=== PATIENT | female | born 1950 | race Caucasian/White ===

== ENCOUNTER 2021-10-20 10:48 | Emergency (ER) | payer MEDICARE, OTHER, SELFPAY ==
[2021-10-20] VITALS (11 sets, daily range): BP systolic 207–243; BP diastolic 99–119; PULSE 86–116; RESP 20; TEMP 36.9; O2SAT 96–99; BMI 25.7
--- NOTE | 2021-10-20 11:21 | DI.CT.S_ITS ---
PROCEDURE: CT SOFT TISSUE NECK W CON INDICATIONS: swelling of glands more on right than left TECHNIQUE: Helical axial CT of the neck was obtained after intravenous contrast injection and reformatted in multiple planes. Radiation dose reduction was achieved utilizing automated exposure control and/or parameter adjustment according to patient's size. COMPARISON: None. FINDINGS: Skull Base: The visualized intracranial contents, skull, and orbits are unremarkable. Bilateral maxillary retention cysts present greater on the left. 1.4 cm left maxillary retention cyst. Incidental deviation of the nasal septum to the left Pharynx and Larynx: The nasopharyngeal airway is patent and midline. Parapharyngeal soft tissues including palatine tonsils and base of the tongue are normal. Retropharyngeal space unremarkable. Normal appearance of the false and true vocal cords. Muscles and Fascial Planes: Fascial planes are well maintained. No abscess or mass lesion. Lymph Nodes: Bilateral level 1B submandibular adenopathy. On the left, there is a 1.8 x 2.1 cm lymph node, and on the right, there is a 2.0 x 1.3 cm node with low-density core and surrounding inflammatory edema present. Vasculature: Unremarkable. Submandibular and Parotid Glands: Normal in size and attenuation. Thyroid: Left 1.7 cm thyroid nodule Bones: No acute fracture. No osteolytic or blastic lesion is evident. Normal bone mineralization. Lung Apices: The visualized lung apices are clear. IMPRESSION: 1. Bilateral submandibular adenopathy. Low-density core and surrounding inflammatory change on the right consistent with suppurative lymphadenitis. Approved by: August Morel M.D. on 10/20/2021 at 12:02
--- NOTE | 2021-10-20 11:21 | ED.URI ---
HPI - URI/Sore Throat General Chief Complaint: Neck Pain/Injury Stated Complaint: Swollen/hard lymphnode on right side of neck Time Seen by Provider: 10/20/21 10:53 History of Present Illness HPI Narrative: Patient is a 71-year-old female who does not go to doctors presenting with neck swelling. She says it started about 2 or 3 days ago got worse yesterday and even worse today. They travel to [place] she said on the plane she felt like it was getting worse. She is still able to swallow she does not feel any difficulty breathing she is managing her own secretions. She has not had any fever or chills. She has significantly more swelling on the right than the left. Patient says she is also worried about monkey pox Related Data Previous Rx's Medication Instructions Recorded amoxicillin 875 mg-potassium 1 tab PO BID #14 tab 10/20/21 clavulanate 125 mg tablet Allergies Allergy/AdvReac Type Severity Reaction Status Date / Time No Known Drug Allergies Allergy Verified 10/20/21 11:48 Review of Systems Review of Systems Narrative: GENERAL: Denies chills, fatigue, malaise, fever, sweats, travel HEENT: See HPI RESPIRATORY: Denies dyspnea, cough, wheezing, hemoptysis, sputum. CARDIOVASCULAR: Denies chest pain, palpitations, orthopnea, edema GASTROINTESTINAL: Denies nausea, vomiting, abdominal pain, diarrhea, constipation, melena. : Denies dysuria, frequency, incontinence, hematuria, urinary retention, flank pain. MUSCULOSKELETAL: Denies weakness, joint pain, or bony pain SKIN: No rash, no erythema, no pruritus NEUROLOGIC: Denies weakness, dizziness, headache, numbness, change in speech, confusion PSYCHIATRIC: No concerning psychosocial issues. 12 point review of systems is negative except for those stated above and HPI Exam Initial Vital Signs Initial Vital Signs: Vital Signs Temperature 98.4 F 10/20/21 11:10 Pulse Rate 116 H 10/20/21 11:10 Respiratory Rate 20 10/20/21 11:10 Blood Pressure 243/119 H 10/20/21 11:10 Pulse Oximetry 99 10/20/21 11:10 GENERAL: Alert anxious 71-year-old female HEENT: Head atraumatic,EOMI, pupils reactive, face symmetric, moist mucous membranes NECK: Submandibular lymph adenopathy and is swelling noted more on right than left. No airway compromise. no Erythema. CARDIOVASCULAR: Regular rate and rhythm without murmurs, rubs or gallops. No stridor, managing secretions RESPIRATORY: Breath sounds equal bilaterally, no wheezes rales or rhonchi. ABDOMEN: Soft, nontender. Normoactive bowel sounds all 4 quadrants. No guarding or rebound. EXTREMITIES: Normal range of motion, no clubbing or edema. Neurovascularly intact NEUROLOGICAL: Alert and oriented x4.Normal gait and speech. SKIN: Warm, dry, no laceration, no petechiae, no rashes or lesions. Skin appears normal. Course Orders Ordered: ED Orders 10/20/21 11:21 CT soft tissue neck w con Stat 10/20/21 11:40 CBC Auto Diff [Complete Blood Count AUTO DIFF] Stat CMP [Comprehensive Metabolic Panel] Stat Procalcitonin Stat Discontinued Medications Ketorolac Tromethamine (Ketorolac 30 Mg/Ml Vial) 15 mg IV NOW ONE Stop: 10/20/21 13:20 Last Admin: 10/20/21 13:34 Dose: 15 mg Documented by: ERICK Vital Signs Vital signs: Vital Signs - 8 hr 10/20/21 11:10 10/20/21 11:35 10/20/21 11:36 Temperature 98.4 F Pulse Rate 116 H 101 H 104 H Respiratory Rate 20 Blood Pressure 243/119 H 236/112 H Pulse Oximetry 99 97 97 10/20/21 12:00 10/20/21 12:19 10/20/21 12:22 Temperature Pulse Rate 98 H 96 H 94 H Respiratory Rate 20 20 Blood Pressure 223/107 H 234/100 H Pulse Oximetry 97 98 98 10/20/21 12:30 10/20/21 13:00 10/20/21 13:06 Temperature Pulse Rate 86 88 94 H Respiratory Rate Blood Pressure 222/104 H 207/99 H 211/103 H Pulse Oximetry 98 96 97 10/20/21 13:18 10/20/21 13:38 Temperature Pulse Rate 95 H Respiratory Rate Blood Pressure 218/106 H Pulse Oximetry 98 MDM - URI/Sore Throat Lab Data Result diagrams: 10/20/21 11:40 10/20/21 11:40 Labs: Lab Results 10/20/21 10/20/21 10/20/21 Range/Units 11:40 11:40 11:40 WBC 14.4 H (4.5-11.0) X10^3/uL RBC 4.66 (4.0-5.2) X10^6/uL Hgb 13.9 (12.0-16.0) g/dL Hct 40.8 (36-46) % MCV 87.4 (80-100) fL MCH 29.8 (26-34) PG MCHC 34.1 (30-36) % RDW 14.7 (11.6-14.8) % Plt Count 221 (150-400) X10^3/uL Neut % (Auto) 84.7 H (50-75) % Lymph % (Auto) 7.8 L (25-40) % [place] % (Auto) 5.9 (3-14) % Eos % (Auto) 1.2 L (2-4) % Baso % (Auto) 0.4 (0-2) % Neut # (Auto) 75000 H (0954-7886) /uL Lymph # (Auto) 1100 (3107-8530) /uL [place] # (Auto) 900 (0-900) /uL Eos # (Auto) 200 (0-450) /uL Baso # (Auto) 100 (0-100) /uL Sodium 139 (137-145) mmol/L Potassium 4.0 (3.4-5.1) mmol/L Chloride 108 H (98-107) mmol/L Carbon Dioxide 26 (22-32) mmol/L BUN 24 H (7-17) mg/dL Creatinine 0.93 (0.52-1.04) mg/dL Estimated GFR > 60 (>60) mL/min BUN/Creatinine Ratio 25.8 H (6-22) Glucose 111 H (80-110) mg/dL Calcium 8.8 (8.4-10.2) mg/dL Total Bilirubin 0.9 (0.2-1.3) mg/dL AST 26 (14-36) IU/L ALT 18 (<35) IU/L Alkaline Phosphatase 71 (38-126) U/L Total Protein 7.8 (6.3-8.2) g/dL Albumin 4.6 (3.5-5.0) g/dL Globulin 3.2 (1.7-4.1) g/dL Albumin/Globulin Ratio 1.4 (1.0-2.8) Procalcitonin 0.07 (<0.5) ng/mL Imaging Data ct soft tissue neck: Radiologist's Impression: CT Scan Report Signed Patient: Halima Smith MR#: [id number] : 1950 Acct:[id number] Age/Sex: 71 / F Date of Service: 10/20/21 Loc: ED Accession Number: [id number] ?? Procedure: CT soft tissue neck w con Ordering Provider: Shey Andrew D.O. PROCEDURE:? CT SOFT TISSUE NECK W CON ? INDICATIONS:? swelling of glands more on right than left ? TECHNIQUE:? Helical axial CT of the neck was obtained after intravenous contrast injection and reformatted in multiple planes.? Radiation dose reduction was achieved utilizing automated exposure control and/or parameter adjustment according to patient's size. ? COMPARISON:? None. ? FINDINGS: ? Skull Base: The visualized intracranial contents, skull, and orbits are unremarkable.? Bilateral maxillary retention cysts present greater on the left.? 1.4 cm left maxillary retention cyst.? Incidental deviation of the nasal septum to the left ? Pharynx and Larynx:? The nasopharyngeal airway is patent and midline.? Parapharyngeal soft tissues including palatine tonsils and base of the tongue are normal.? Retropharyngeal space unremarkable.? Normal appearance of the false and true vocal cords. ? ? Muscles and Fascial Planes:? Fascial planes are well maintained.? No abscess or mass lesion. ? Lymph Nodes:? Bilateral level 1B submandibular adenopathy.? On the left, there is a 1.8 x 2.1 cm lymph node, and on the right, there is a 2.0 x 1.3 cm node with low-density core and surrounding inflammatory edema present. ? Vasculature:? Unremarkable. ? Submandibular and Parotid Glands:? Normal in size and attenuation. ? Thyroid:? Left 1.7 cm thyroid nodule ? Bones:? No acute fracture.? No osteolytic or blastic lesion is evident. Normal bone mineralization. ? Lung Apices:? The visualized lung apices are clear. ? IMPRESSION: ? 1. Bilateral submandibular adenopathy.? Low-density core and surrounding inflammatory change on the right consistent with suppurative lymphadenitis. ? Approved by: August Morel M.D. on 10/20/2021 at 12:02? MDM Narrative Medical decision making narrative: Patient pressure remained elevated throughout her stay. She does not have history of hypertension. She hikes 3 times a week she also does apply ice 3 times a week she really does not like hospitals or positions. She is also quite anxious. She has no airway compromise. She has not had fever chills. Blood work is overall reassuring. CT does show lymphadenopathy. Shift. She is afebrile. This came on quite suddenly. I suspect more infectious, viral versus bacterial unclear at this time. Will give her antibiotics Discharge Plan Departure Patient Disposition: Home Clinical Impression: Cervical lymphadenopathy Instructions: Chronic Lymphadenitis Activity Restrictions/Additional Instructions: *You have been diagnosed with cervical lymphadenopathy *What to do: At this time please monitor. Your given a prescription for antibiotics this should help. Please monitor blood pressure and check once daily and record. You may require blood pressure medication however not indicated this time. *Continue to take medications as directed Augmentin 875 mg twice daily for 7 days *Follow up with your primary care provider in 2-3 days or call [phone] *Return to ER if you should have increased neck swelling difficulty swallowing difficulty breathing, increased redness, any new, worsening or concerning symptoms Prescriptions: New amoxicillin-pot clavulanate 875-125 mg tablet 1 tab PO BID Qty: 14 0RF Referrals: Morgan Almodovar MD [Primary Care Provider] -
[2021-10-20 11:48] LABS: Add Manual Diff / Slide Review NO; Basophils Absolute Auto 100 /uL (0-100); Basophils Percent Auto 0.4 % (0-2); Eosinophils Absolute Auto 200 /uL (0-450); Eosinophils Percent Auto 1.2 % (2-4); Hematocrit 40.8 % (36-46); Hemoglobin 13.9 g/dL (12.0-16.0); Lymphocytes Absolute Auto 1100 /uL (1100-4500); Lymphocytes Percent Auto 7.8 % (25-40); Mean Corpuscular HGB Conc 34.1 % (30-36); Mean Corpuscular Hemoglobin 29.8 PG (26-34); Mean Corpuscular Volume 87.4 fL (80-100); Monocytes Absolute Auto 900 /uL (0-900); Monocytes Percent Auto 5.9 % (3-14); Neutrophils Absolute Auto 12200 /uL (1500-7000); Neutrophils Percent Auto 84.7 % (50-75); Platelet Count 221 X10^3/uL (150-400); Red Blood Cell Count 4.66 X10^6/uL (4.0-5.2); Red Cell Distribution Width 14.7 % (11.6-14.8); White Blood Cell Count 14.4 X10^3/uL (4.5-11.0)
[2021-10-20 11:58] LABS: Alanine Aminotransferase 18 IU/L (<35); Albumin 4.6 g/dL (3.5-5.0); Albumin Globulin Ratio 1.4 (1.0-2.8); Alkaline Phosphatase 71 U/L (38-126); Aspartate Aminotransferase 26 IU/L (14-36); BUN Creatinine Ratio 25.8 (6-22); Bilirubin Total 0.9 mg/dL (0.2-1.3); Blood Urea Nitrogen 24 mg/dL (7-17); Calcium 8.8 mg/dL (8.4-10.2); Carbon Dioxide 26 mmol/L (22-32); Chloride 108 mmol/L (98-107); Estimated Glomerular Filt Rate > 60 mL/min (>60); Globulin 3.2 g/dL (1.7-4.1); Glucose 111 mg/dL (80-110); HEMOLYSIS < 15 (0-50); Sodium 139 mmol/L (137-145); Total Protein 7.8 g/dL (6.3-8.2)
[2021-10-20 12:14] LABS: Procalcitonin 0.07 ng/mL (<0.5)
[2021-10-20] MEDS: KETOROLAC 30 MG/ML VIAL 15 MG IV (13:34)
== END 2021-10-20 13:44 | disposition home or self-care (01) ==
PROVIDERS: Emergency Provider Emergency Medicine; PCP Family Medicine
DX: R59.1 Generalized enlarged lymph nodes (principal)
CPT/HCPCS: 36415; 70491; 80053; 84145; 85025; 96374; 99284; J1885; Q9967